=== PATIENT | female | born 1990 | race Caucasian/White ===

== ENCOUNTER → 2022-10-27 15:27 | Outpatient (BNVA) | payer OTHER, SELFPAY | PROVIDERS: PCP Internal Medicine; Visit Provider Physician Assistant Surgical ==

== ENCOUNTER → 2022-11-06 08:10 | Outpatient (BNVA) | payer OTHER, SELFPAY | PROVIDERS: PCP Internal Medicine; Visit Provider Surgery ==

== ENCOUNTER 2022-11-09 11:15 | Outpatient (REF) | payer OTHER, SELFPAY ==
--- NOTE | ~2022-11-09 | XR_ITS ---
EXAMINATION: XR CHEST CLINICAL INFORMATION: E66.01. Bariatric service evaluation. COMPARISON: Chest radiographs 01/24/2009. TECHNIQUE: 2 views of the chest were obtained. FINDINGS: The lungs are clear. Heart size normal. Vascularity normal. The costophrenic sulci are clear. The hilar and mediastinal contours are unremarkable. There is a gentle dextrocurvature thoracic spine. XR/XR chest 2V IMPRESSION: Lungs clear.
--- NOTE | 2022-11-09 11:21 | ECG_ITS ---
Test Reason : E66.01 Blood Pressure : / mmHG Vent. Rate : 069 BPM Atrial Rate : 069 BPM P-R Int : 146 ms QRS Dur : 100 ms QT Int : 410 ms P-R-T Axes : 015 -12 037 degrees QTc Int : 439 ms Normal sinus rhythm Incomplete right bundle branch block Borderline ECG No previous ECGs available Referred By: Arturo Danielson Electronically Signed By:RADHA MCKEON MD
[2022-11-09 11:35] LABS: MANUAL DIFF FLAG NO
[2022-11-09 12:24] LABS: Basophils Percent Auto 0.4 % (0-2); Eosinophils Absolute Auto 0.1 X10*3/uL (0.0-0.4); Eosinophils Percent Auto 1.4 % (0-4); Hematocrit 37.5 % (37.0-47.0); Hemoglobin 12.5 g/dl (12.0-16.0); Imm Gran Abs Auto 0.03 X10*3/uL (0.00-0.03); Imm Gran Pct Auto 0.4 % (0.0-0.4); Lymphocytes Absolute Auto 2.5 X10*3/uL (1.2-4.9); Lymphocytes Percent Auto 34.8 % (20-40); Mean Corpuscular HGB Conc 33.3 g/dl (31.0-35.0); Mean Corpuscular Hemoglobin 26.3 pg (27.0-33.0); Mean Corpuscular Volume 78.9 fL (80.0-98.0); Mean Platelet Volume 10.5 fL (9.4-12.3); Monocytes Absolute Auto 0.4 X10*3/uL (0.1-1.2); Monocytes Percent Auto 5.8 % (2-11); Neutrophils Absolute Auto 4.2 x10*3/uL (2.0-8.3); Neutrophils Percent Auto 57.2 % (45-73); Platelet Count 227 X10*3/uL (160-400); Red Blood Count 4.75 X10*6/uL (4.20-5.50); Red Cell Distribution Width 12.4 % (11.0-16.0); White Blood Count 7.3 X10*3/uL (4.8-10.8)
[2022-11-09 13:00] LABS: Alanine Aminotransferase 20 U/L (0-31); Alkaline Phosphatase 84 U/L (39-117); Anion Gap 11 (12-20); Aspartate Amino Transferase 23 U/L (5-31); Bilirubin Total 1.6 mg/dL (0.0-1.0); Blood Urea Nitrogen 10 mg/dL (9-16); C Reactive Protein 0.75 mg/dL (< or = 0.50); Carbon Dioxide 25 mmol/L (22-29); Chloride 109 mmol/L (96-108); Cholesterol 159 mg/dL; Estimated Glomerular Filt Rate > 60; Glucose Random 83 mg/dL (60-115); HDL Cholesterol 40 mg/dL; Iron 79 mcg/dL (30-160); LDL Cholesterol Calculated 94 mg/dl; Percent Iron Saturation 27 % (15-50); Potassium 4.4 mmol/L (3.3-5.1); Sodium 141 mmol/L (135-145); Total Iron Binding Capacity 298 mcg/dL (228-428); Total Protein 6.5 g/dL (6.5-8.0); Triglycerides 128 mg/dL; Unsaturated Iron Binding 219 ug/dL
[2022-11-09 13:07] LABS: Estimated Average Glucose 108 mg/dL; Hemoglobin A1c % 5.4 %
[2022-11-09 13:30] LABS: Ferritin 93 ng/mL (10-122); Insulin 12 uU/mL (2-29); TSH reflex Free T4 0.92 uIU/mL (0.32-4.0); Vitamin B12 377 pg/mL (200-900)
[2022-11-11 11:07] LABS: H Pylori Breath Test Negative (Negative)
[2022-11-13 21:49] LABS: Calcium (PTHI) 9.2 mg/dL (8.6-10.2); PTHI 55 pg/mL (16-77)
[2022-11-14 05:39] LABS: Zinc 76 mcg/dL (60-130)
[2022-11-17 06:18] LABS: Vitamin B1 13 nmol/L (8-30)
[2022-12-02 01:05] LABS: Vitamin A 33 mcg/dL (38-98)
== END 2022-11-09 11:16 | disposition home or self-care (01) ==
LOC: HO.LAB 11:15
PROVIDERS: Visit Provider Surgery
DX: B20 Human immunodeficiency virus [HIV] disease (principal); E66.01 Morbid (severe) obesity due to excess calories; F90.9 Attention-deficit hyperactivity disorder, unspecified type; K21.9 Gastro-esophageal reflux disease without esophagitis; Z11.0 Encounter for screening for intestinal infectious diseases
CPT/HCPCS: 36415; 71046; 80053; 80061; 82306; 82607; 82728; 82746; 83013; 83036; 83525; 83540; 83970; 84425; 84443; 84590; 84630; 85025; 86140; 93005; 99211

== ENCOUNTER → 2022-11-17 09:31 | Outpatient (BNVA) | payer OTHER, SELFPAY | PROVIDERS: PCP Internal Medicine; Visit Provider Counselor Mental Health ==

== ENCOUNTER → 2022-11-23 16:15 | Outpatient (BNVA) | payer OTHER, SELFPAY | PROVIDERS: PCP Internal Medicine; Visit Provider Dietitian, Registered | DX: E66.01 Morbid (severe) obesity due to excess calories (principal); K21.9 Gastro-esophageal reflux disease without esophagitis; B20 Human immunodeficiency virus [HIV] disease; Z68.41 Body mass index [BMI] 40.0-44.9, adult; Z71.3 Dietary counseling and surveillance | CPT/HCPCS: 97802 ==